=== PATIENT | female | born 1985 | race Caucasian/White ===

== ENCOUNTER 2017-07-12 07:51 | Day surgery (SDC) | payer BC, OTHER ==
[2017-07-12] MEDS ORDERED: Lactated Ringers 1,000 ML IV SCH (08:00)
[2017-07-12] MEDS ORDERED: Sodium Chloride 0.9% 5 ML Syringe FLUSH PRN (08:00)
[2017-07-12] MEDS ORDERED: Bupivacaine 0.5% 30 ML SDV ONE (08:22)
[2017-07-12] MEDS ORDERED: Midazolam 1 MG/ML 2 ML SDV ONE (08:23)
[2017-07-12] MEDS ORDERED: fentaNYL 100 MCG/2 ML SDV ONE (08:24)
[2017-07-12] MEDS ORDERED: Lidocaine 0.5% 50 ML SDV ONE (08:24)
[2017-07-12] MEDS ORDERED: Propofol 200 MG/20 ML SDV ONE ×2 (08:24→08:45)
[2017-07-12] MEDS ORDERED: fentaNYL 100 MCG/2 ML SDV IV ONE (09:27)
[2017-07-12] MEDS ORDERED: Midazolam 1 MG/ML 2 ML SDV IV ONE (09:27)
[2017-07-12] MEDS ORDERED: Propofol 200 MG/20 ML SDV IV ONE (09:27)
[2017-07-12] MEDS ORDERED: Bupivacaine 0.5% 10 ML SDV INFILT ONE (09:51)
--- NOTE | 2017-07-12 10:38 | PCM.OPNOTE ---
- General Post-Op/Procedure Note Anesthesia Technique: MAC, Regional Block Condition: Good Free Text/Narrative:: INFORMED CONSENT: Patient is here today for elective left carpal tunnel decompression. All aspects of this procedure have been discussed with the patient. All possible complications also, including possibility of perforation , infection, pain, bleeding and unknown complications. In the event of perforation patient may need to have abdominal exploration, colon resection, colostomy and even was discussed. Anesthetic complications were handled by anesthesia department. The patient understands fully well. Patient did not have any further questions for me at the end of my interview. The patient wishes for me to proceed. PROCEDURE: Patient was kept in the supine position and the satisfactory [place] block anesthesia was administered. The left arm was thoroughly prepped and draped in the usual fashion. The tourniquet was placed to the left upper arm and a vertical incision was made in the palm directly distal to the distal wrist crease. The skin incision was deepened through the subcutaneous tissue, the palmar aponeurosis was incised and then we came down upon the transverse carpal ligament, which was opened along the line of the skin incision. Extreme care was taken to protect the median nerve below. Careful neurolysis was performed meticulously. Approximately 2 cc of Marcaine 0.5% was instilled into the wound and skin was closed using mattress sutures with 3.0 Nylon. The tourniquet was released. A sterile pressure dressing was applied. The patient tolerated the procedure well and was transferred to the recovery room in excellent condition.
== END 2017-07-12 12:15 | disposition home or self-care (01) ==
LOC: KA.SDS 07:51
PROVIDERS: ATTEND Family Medicine
DX: G56.02 Carpal tunnel syndrome, left upper limb (principal); G89.29 Other chronic pain; M54.5 Low back pain; F32.9 Major depressive disorder, single episode, unspecified; I10 Essential (primary) hypertension; F41.9 Anxiety disorder, unspecified; R73.9 Hyperglycemia, unspecified; E66.01 Morbid (severe) obesity due to excess calories; Z68.41 Body mass index [BMI] 40.0-44.9, adult; Z88.0 Allergy status to penicillin; Z79.84 Long term (current) use of oral hypoglycemic drugs; Z79.899 Other long term (current) drug therapy
CPT/HCPCS: 81025; J2250; J2704; J3010; J7120